=== PATIENT | female | born 1985 | race Caucasian/White ===

== ENCOUNTER 2021-02-10 00:59 | Inpatient (IN) | payer OTHER ==
[~2021-02-10] VITALS: Ht 165.1 cm; Wt 76.7 kg
--- NOTE | 2021-02-10 04:06 | NUR ---
02/10/21 0406 Marcy Ortiz 0259 PT ARRIVED IN PACU NON RESPONSIVE TO NOXIOUS STIMULI WITH OPA IN PLACE. 0319 PT REACTIVE. OPA REMOVED. 0330 ATTEMPTED FUNDAL MASSAGE AND PT SWINGING FISTS AT RN'S. CALLED FOR SECURITY TO HELP. FUNDAL MASSAGE DONE BY [facility] RN WITH ONE RN HOLDING EACH ARM AND SECURITY AT BEDSIDE. PT SCREAMING AND KICKING DURING MASSAGE. 0337 FENTANYL 50MCG GIVEN IVP FOR ABD PAIN. 0342 PT CLINCHING MUSCLES AND BEARING DOWN. EXPLAINED THIS MAKES ABD PAIN WORSE. PT YELLING "I DON'T CARE, IT HURTS." FENTANYL 50MCG GIVEN IVP. 0345 FBC RN AT BEDSIDE DOING FUNDAL MASSAGE. ONE RN AT EACH ARM. PT YELLING AND BEARING DOWN DURING MASSAGE. FBC RN EXPLAINED TO PT ABOUT RELAXING ABD MUSCLES, WITH NO SUCCESS. REPORT GIVEN TO RN.
--- NOTE | 2021-02-11 07:41 | PR ---
[facility] [address] [facility] [place], [place] [address] Signed PP Progress Notes Datetime Report Generated by CPN: 02/11/2021 07:40 SUBJECTIVE: [id number] Pain: Within Normal Limits Nausea/Vomiting: Denies Flatus: Yes Vital Signs: [id number] Vital Signs: Reviewed; Within Normal Limits Cardiovascular: Normal Respiratory: Abnormal Abdomen/Uterus: Normal Lochia: Normal Vulva/Perineum: Not Done Breasts: Not Done CVA Tenderness: Not Done Extremities: Normal Incision: Normal Progress: Not Applicable Exam Comments: Generally very flat affect Lungs with decreased breath sounds in the bases Abdomen with active BS. Fundus firm, NT @ U-3 H/H 7.3/22.7, WBC 11.2, plat 209k IMPRESSION/PLAN/PROCEDURES: [id number] Other Impression: decreased breath sounds, anemia Other Plans: ambulate, shower, spirometer Other Procedures: IV iron Progress Notes: Very slow moving. Emphasized importance of ambulation and shower. Spirometer also discussed and emphasized. Discussed IV iron to improve her anemia and she is amenable. Signing Physician: Jacinda Barfield MD Copies: ~ *Electronically Signed* 02/11/21739 JACINDA BARFIELD MD PATIENT NAME: KERI DAMON PROGRESS NOTE DATE OF : 87 PHYSICIAN: JACINDA BARFIELD MD RPT #: [id number] REPORT IS CONFIDENTIAL AND NOT TO BE RELEASED WITHOUT AUTHORIZATION
--- NOTE | 2021-02-12 11:24 | PATH ---
[facility] [address] [place], [place] [address] Signed SPECIMEN(S): A PLACENTA SPECIMEN SOURCE: A. PLACENTA CLINICAL HISTORY: Abruption. No care. FINAL PATHOLOGIC DIAGNOSIS: Placenta: - Moore placenta, 548 grams, see comment. - Umbilical cord: Three-vessel umbilical cord with no histopathologic abnormality. - membranes: Pigmented macrophages. - Placental disc: Chorionic villi with mature villous morphology, multiple placental infarcts (approximately 1.1 cm in greatest dimension), focal decidual hemorrhage. COMMENT: The placental infarcts are located adjacent to the maternal surface and are favored/likely to be secondary to clinical history of placental abruption. The gestational age is unknown, therefore the appropriateness of placental weight to gestational age cannot be determined. NAL:cml:c2NR MICROSCOPIC EXAMINATION: Histologic sections of all submitted blocks are examined by light microscopy. These findings, together with the gross examination, support the pathologic diagnosis. GROSS DESCRIPTION: The specimen, labeled "GIANCARLO, placenta," is received in formalin and consists of a moore discoid placenta with the following parameters: Umbilical cord: Insertion eccentric-2.1 cm from the margin, measurement 19.2 x 1.2 cm; trivascular. Cord coiling index (per 10 cm): Two. Lesions: The cord has a slight green discoloration. Membranes: Insertion site: Marginal, green hue translucent, rupture site eccentric. Intact. Other: Not grossly identified. Chorionic Plate: Normal radiating vascular pattern, blue-purple and shiny. Lesions: Multiple, focal submembranous areas of de la garza-white discoloration from 0.8 up to 3.0 cm in greatest dimension and PATIENT NAME: KERI DAMON PATHOLOGY DATE OF : 87 REPORT #: [id number] PHYSICIAN: JELANI OVIEDO PCP: OTHER PCP REPORT IS CONFIDENTIAL AND NOT TO BE RELEASED WITHOUT AUTHORIZATION [facility] [address] [place], [place] [address] Signed comprising approximately 5% of the surface. Other: Not grossly identified. Maternal Surface: Normal cotyledons, intact. Lesions: Multiple de la garza-white areas of consolidation from less than 0.1 up to 1.3 cm in greatest dimension and comprising approximately 10% of the maternal surface. Measurement: 17.2 x 16.3 x 3.1 cm. Weight (trimmed): 548 g Cut Surface: Maroon and spongy. Lesions: Multiple, focal areas of de la garza-white consolidation that are associated with the chorionic plate and maternal surface discoloration. There is a consolidation area from 0.2-3.0 cm in greatest dimension. The majority of the areas of consolidation grossly appear to involve the maternal surface. Basal plate fibrin 0.1 cm in thickness. Other Findings: Not grossly identified Cassette Summary: (A1) membranes and umbilical cord (A2) central section of placenta (A3) eccentric section of placenta (A4) eccentric section of placenta. AI(under the direct supervision of a pathologist) The Gross Description was prepared using a voice recognition system. The report was reviewed for accuracy; however, sound-alike word errors, addition and/or deletions may occur. If there is any question about this report, please contact Client Services. PERFORMING LABORATORY: The technical component was performed by [facility], [address] [place] [id number] (Crutcher Helper: Sola Samuel MD; CLIA# [id number]). Professional interpretation was performed by [facility], [place] branch, [address] [place] [facility] [place] [address] (CLIA# [id number]). Diagnostician: Pearl Cooper MD Pathologist Electronically Signed 02/12/2021 Copies: ~ PATIENT NAME: KERI DAMON PATHOLOGY DATE OF : 87 REPORT #: [id number] PHYSICIAN: JELANI OVIEDO PCP: OTHER PCP REPORT IS CONFIDENTIAL AND NOT TO BE RELEASED WITHOUT AUTHORIZATION
--- NOTE | 2021-02-12 11:51 | PR ---
[facility] [address] [place], [place] [address] Signed PP Progress Notes Datetime Report Generated by CPN: 02/12/2021 11:51 SUBJECTIVE: [id number] Pain: Within Normal Limits Pain Comments: taking large amounts of oxycodone Nausea/Vomiting: Denies Nausea/Vomiting Comments: plans for rehab are still pending Flatus: Yes Vital Signs: [id number] Vital Signs: Reviewed; Within Normal Limits Cardiovascular: Normal Respiratory: Not Done Abdomen/Uterus: Abnormal Lochia: Normal Vulva/Perineum: Not Done Breasts: Not Done CVA Tenderness: Not Done Extremities: Normal Incision: Normal Progress: Not Applicable Exam Comments: Abdomen with active BS. Fundus firm, NT @ U-2. IMPRESSION/PLAN/PROCEDURES: [id number] Impression: Normal Progression Other Impression: Fentanyl addiction Plan: Continue Present Management Other Plans: ambulate, shower, spirometer Other Procedures: IV iron Progress Notes: Doing well postoperatively though still taking large amounts of oxycodone. She is wanting to go into rehab though plans are still being formulated. She would like to start a nicotine patch as well. Signing Physician: Jacinda Barfield MD Copies: ~ *Electronically Signed* 02/12/21 7894 JACINDA BARFIELD MD PATIENT NAME: KERI DAMON PROGRESS NOTE DATE OF : 87 PHYSICIAN: JACINDA BARFIELD MD RPT #: [id number] REPORT IS CONFIDENTIAL AND NOT TO BE RELEASED WITHOUT AUTHORIZATION
--- NOTE | 2021-02-14 09:13 | OR ---
[facility] [address] [place], [place] [address] Signed DATE OF OPERATION: 02/10/2021 SURGEON: Jacinda Barfield MD EDGE PLUGGER: Dr. Blanchard. PREOPERATIVE DIAGNOSIS: Term , active labor, previous section, no care, opiate abuse. POSTOPERATIVE DIAGNOSIS: Term , active labor, previous section, no care, opiate abuse, delivered. PROCEDURE: Repeat section with low segment transverse uterine incision. Lysis of adhesions. ANESTHESIA: General ET. ESTIMATED BLOOD LOSS: 800 mL. DRAINS: Clark catheter. INDICATIONS AND FINDINGS: The patient is a 35-year-old female, who has had no care but is approximate 38 weeks by an early ultrasound done at the care center. The patient has been using fentanyl as well as occasional Suboxone throughout her . She has undergone a prior section approximately 16 years ago. When she arrived in Labor and Delivery, she was in active labor, and was approximately 9 cm. Decision was made to proceed with repeat section. She was taken to the operating room where she was delivered of a little girl from the ROT position via lower segment transverse uterine incision with Apgars of 8 and 9 and a weight of 6 pounds 5 ounces. There was evidence of abruption at delivery. There was thick meconium at delivery as well. The uterus appeared normal as did the tubes and ovaries. The placenta had evidence of calcifications and small infarcts. She did have adhesions of the omentum to the anterior peritoneum as well. Electronically Signed By: JACINDA BARFIELD MD 02/14/21 0913 PATIENT NAME: KERI DAMON OPERATIVE REPORT DATE OF : 87 REPORT #: [id number] PHYSICIAN: JACINDA BARFIELD MD PCP: OTHER PCP REPORT IS CONFIDENTIAL AND NOT TO BE RELEASED WITHOUT AUTHORIZATION [facility] [address] [place], [place] [address] Signed DESCRIPTION OF PROCEDURE: The patient was prepped and draped in the supine position. A repeat Pfannenstiel skin incision was made and carried down through the fascia. The incision was extended laterally. The inferior flap did not require development as the prior incision was almost on the pubis. The superior fascial flaps were then developed. Peritoneum was opened bluntly and the incision extended. The Rafa retractor was then placed. The uterine incision was made at the upper aspect of the peritoneal reflection. There was clear fluid as well as thick meconium at delivery. The baby was delivered with the above findings and handed off to the pediatric staff in attendance. The placenta was removed manually and the uterus explored with a lap tape. The edges of the incision were identified. There was evidence of an extension on the patient's left side. This was controlled with a separate suture of 0 Monocryl. This extension was brought up to the angle to merge. Following this, a full-length suture was used to close the incision with a running locking stitch again using the 0 Monocryl. An imbricating stitch was then placed again of the 0 Monocryl. Following this, the abdomen was copiously irrigated and inspected. Bleeding points on the peritoneum were controlled with cautery. The retractor was then removed and the peritoneum identified. The filmy adhesions of the omentum were taken down using cautery as well as free ties of 2-0 chromic. Following this, the incision was re-evaluated and seen to be hemostatic but was kind of raw. Because of this, Julio was placed over this. The ACell patch was also laid to aid in healing. The peritoneum was then closed in a running suture of 3-0 Vicryl. The muscles were brought together with interrupted sutures of 0 Vicryl. Bleeding points were controlled with cautery. This layer was irrigated, inspected, and found to be hemostatic. ACell powder was sprinkled over the muscles to aid in healing. The fascia was then closed from each angle to the midline with a running suture of 0 Vicryl. The subcu space was irrigated and bleeding points controlled with cautery. Deep space was closed with a running suture of 3-0 Vicryl. The scar was then excised sharply. The skin was closed with a subcuticular suture of 4-0 Vicryl Rapide. This was followed by Mastisol and SteriStrips. All sponge and needle counts were correct. She tolerated the procedure well and was taken to the recovery room in good condition. Jacinda Barfield MD PJW/MODL /[id number] Electronically Signed By: JACINDA BARFIELD MD 02/14/21 0913 PATIENT NAME: KERI DAMON OPERATIVE REPORT DATE OF : 87 REPORT #: [id number] PHYSICIAN: JACINDA BARFIELD MD PCP: OTHER PCP REPORT IS CONFIDENTIAL AND NOT TO BE RELEASED WITHOUT AUTHORIZATION [facility] [address] [place] [address] [place], [place] [address] Signed CC: Dr. MONDRAGON Blanchard Copies: ~ Electronically Signed By: JACINDA BARFIELD MD 02/14/21912 PATIENT NAME: KERI DAMON TAMMY OPERATIVE REPORT DATE OF : 87 REPORT #: [id number] PHYSICIAN: JACINDA BARFIELD MD PCP: OTHER PCP REPORT IS CONFIDENTIAL AND NOT TO BE RELEASED WITHOUT AUTHORIZATION
== END 2021-02-12 15:35 | disposition home or self-care (01) | DRG 787 ==
LOC: FBCO 00:59 → FBC 01:42
PROVIDERS: ADMIT Obstetrics & Gynecology; ATTEND Obstetrics & Gynecology
PROC: 10D00Z1 Extraction of Products of Conception, Low, Open Approach (ICD-10-PCS; principal; 2021-02-10 01:45)
DX: O34.211 Maternal care for low transverse scar from previous cesarean delivery (principal); O99.324 Drug use complicating childbirth; Z3A.38 38 weeks gestation of pregnancy; Z37.0 Single live birth; O77.0 Labor and delivery complicated by meconium in amniotic fluid; F11.10 Opioid abuse, uncomplicated; O64.0XX0 Obstructed labor due to incomplete rotation of fetal head, not applicable or unspecified
CPT/HCPCS: 01961; 80053; 82803; 85027; 86900; 88307; A9270; J0330; J0690; J1170; J1885; J2250; J2370; J2405; J2590; J2704; J2765; J2916; J3010; J7040; J7121; U0003

== ENCOUNTER → 2023-02-26 | Emergency (ER) | payer OTHER ==
[~2023-02-26] VITALS: Ht 165.1 cm; Wt 75.8 kg
--- OUTSIDE RECORDS SUMMARY | ~2023-02-26 | XMS | Continuity of Care Document ---
Demographics + + + | Address | [address] | | | [place] [address] | + + + | Preferred Language | Unknown | + + + | Marital Status | | + + + | Adventism Affiliation | Unknown | + + + | Race | White | + + + | Ethnic Group | Not or | + + + Author + + + | Author | [facility] | + + + | Organization | [facility] | + + + | Address | [address] | | | [place] [address] | + + + | Phone | | + + + Care Team Providers + + + + | Care Mortgage Accounting Clerk Name | Role | Phone | + + + + Unavailable | Unavailable | + + + + Unavailable | Unavailable | + + + + Allergies and Intolerances + + + + + + | date | description | facility | reaction | severity | + + + + + + | (no date) | No Known | [facility] | (no reaction) | (no severity) | | | Allergies | | | | + + + + + + Encounters No information. Functional Status No information. Immunizations + + + + | date | description | facility | + + + + | 2022-12-26 00:00 | MMR | [facility] | + + + + | 2023-02-23 00:00 | MMR | [facility] | + + + + Medications No information. Problems + + + + | date | description | facility | + + + + | 2022-12-25 22:58 | Essential (primary) | [facility] | | | hypertension | | + + + + | 2022-12-25 22:58 | OTHER CHEST PAIN | [facility] | + + + + | 2022-12-25 22:58 | CHEST PAIN, UNSPECIFIED | [facility] | + + + + | 2022-12-26 00:00 | Non-cardiac chest pain | [facility] | + + + + | 2023-02-22 00:00 | Chest pain | [facility] | + + + + | 2023-02-22 23:24 | Essential (primary) | [facility] | | | hypertension | | + + + + | 2023-02-22 23:24 | OTHER CHEST PAIN | [facility] | + + + + | 2023-02-22 23:24 | CHEST PAIN, UNSPECIFIED | [facility] | + + + + Procedures No information. Results/Labs +--------+--------+ +---------+--------+---------+ | test | date | facility | value | unit | notes | +--------+--------+ +---------+--------+---------+ + + | Result panel 1 | + + + + + +--------+ + + | | 2022-12-25 | [facility] | 12.2 | (missing) | (missing) | | (unavailable [facility] | | + + + +--------+ + + + + | Result panel 2 | + + + + + +--------+ + + | | 2022-12-25 | [facility] | 5.17 | (missing) | (missing) | | (unavailable | [facility] | | | + + + +--------+ + + + + | Result panel 3 | + + + + + +--------+ + + | | 2022-12-25 | [facility] | 13.7 | (missing) | (missing) | | (unavailable | [facility] | | | + + + +--------+ + + + + | Result panel 4 | + + + + + +--------+ + + | | 2022-12-25 | [facility] | 43.2 | (missing) | (missing) | | (unavailable | ::07 [facility] | | | + + + +--------+ + + + + | Result panel 5 | + + + + + +--------+ + + | | 2022-12-25 | [facility] | 83.5 | (missing) | (missing) | | (unavailable | [facility] | | | + + + +--------+ + + + + | Result panel 6 | + + + + + +--------+ + + | | 2022-12-25 | [facility] | 26.5 | (missing) | (missing) | | (unavailable | [facility] | | | + + + +--------+ + + + + | Result panel 7 | + + + + + +--------+ + + | | 2022-12-25 | [facility] | 31.7 | (missing) | (missing) | | (unavailable | [facility] | | | + + + +--------+ + + + + | Result panel 8 | + + + + + +--------+ + + | | 2022-12-25 | [facility] | 14.4 | (missing) | (missing) | | (unavailable | [facility] | | | + + + +--------+ + + + + | Result panel 9 | + + + + + +-------+ + + | | 2022-12-25 | [facility] | 328 | (missing) | (missing) | | (unavailable | [facility] | | | + + + +-------+ + + + + | Result panel 10 | + + + + + +--------+ + + | | 2022-12-25 | [facility] | 58.4 | (missing) | (missing) | | (unavailable | [facility] | | | + + + +--------+ + + + + | Result panel 11 | + + + + + +--------+ + + | | 2022-12-25 | [facility] | 34.0 | (missing) | (missing) | | (unavailable | [facility] | | | + + + +--------+ + + + + | Result panel 12 | + + + + + +-------+ + + | | 2022-12-25 | [facility] | 6.5 | (missing) | (missing) | | (unavailable | [facility] | | | + + + +-------+ + + + + | Result panel 13 | + + + + + +-------+ + + | | 2022-12-25 | [facility] | 0.1 | (missing) | (missing) | | (unavailable | [facility] | | | + + + +-------+ + + + + | Result panel 14 | + + + + + +-------+ + + | | 2022-12-25 | [facility] | 1.0 | (missing) | (missing) | | (unavailable | [facility] | | | + + + +-------+ + + + + | Result panel 15 | + + + + + +--------+ + + | | 2022-12-25 | [facility] | 0.29 | (missing) | (missing) | | (unavailable | [facility] | | | + + + +--------+ + + + + | Result panel 16 | + + + + + +-------+---------+ + | | 2022-12-25 | [facility] | 113 | mg/dL | (missing) | | (unavailable | [facility]07 [facility] | | | + + + +-------+---------+ + + + | Result panel 17 | + + + + + +------+---------+ + | | 2022-12-25 | [facility] | 11 | mg/dL | (missing) | | (unavailable | [facility]07 [facility] | | | + + + +------+---------+ + + + | Result panel 18 | + + + + + +--------+---------+ + | | 2022-12-25 | [facility] | 0.91 | mg/dL | (missing) | | (unavailable | [facility] | | | + + + +--------+---------+ + + + | Result panel 19 | + + + + + +------+ + + | | 2022-12-25 | [facility] | 84 | (missing) | (missing) | | (unavailable | [facility] | | | + + + +------+ + + + + | Result panel 20 | + + + + + +---------+ + + | | 2022-12-25 | [facility] | 12.08 | (missing) | (missing) | | (unavailable | [facility] | | | + + + +---------+ + + + + | Result panel 21 | + + + + + +-------+ + + | | 2022-12-25 | [facility] | 140 | (missing) | (missing) | | (unavailable | [facility] | | | + + + +-------+ + + + + | Result panel 22 | + + + + + +-------+ + + | | 2022-12-25 | [facility] | 3.1 | (missing) | (missing) | | (unavailable | [facility] | | | + + + +-------+ + + + + | Result panel 23 | + + + + + +-------+ + + | | 2022-12-25 | [facility] | 104 | (missing) | (missing) | | (unavailable | [facility] | | | + + + +-------+ + + + + | Result panel 24 | + + + + + +------+ + + | | 2022-12-25 | [facility] | 27 | (missing) | (missing) | | (unavailable | [facility] | | | + + + +------+ + + + + | Result panel 25 | + + + + + +--------+ + + | | 2022-12-25 | [facility] | 12.1 | (missing) | (missing) | | (unavailable | [facility] | | + + + +--------+ + + + + | Result panel 26 | + + + + + +-------+---------+ + | | 2022-12-25 | [facility] | 8.9 | mg/dL | (missing) | | (unavailable | [facility] | | | + + + +-------+---------+ + + + | Result panel 27 | + + + + + +-------+---------+ + | | 2022-12-25 | [facility] | 2.1 | mg/dL | (missing) | | (unavailable | [facility] | | | + + + +-------+---------+ + + + | Result panel 28 | + + + + + +-------+ + + | | 2022-12-25 | [facility] | 7.3 | (missing) | (missing) | | (unavailable | [facility] | | | + + + +-------+ + + + + | Result panel 29 | + + + + + +-------+ + + | | 2022-12-25 | [facility] | 3.6 | (missing) | (missing) | | (unavailable | [facility] | | | + + + +-------+ + + + + | Result panel 30 | + + + + + +-------+ + + | | 2022-12-25 | [facility] | 3.7 | (missing) | (missing) | | (unavailable | [facility] | | | + + + +-------+ + + + + | Result panel 31 | + + + + + +--------+ + + | | 2022-12-25 | [facility] | 0.97 | (missing) | (missing) | | (unavailable | [facility] | | | + + + +--------+ + + + + | Result panel 32 | + + + + + +-------+ + + | | 2022-12-25 | [facility] | 0.3 | (missing) | (missing) | | (unavailable | [facility] | | | + + + +-------+ + + + + | Result panel 33 | + + + + + +------+ + + | | 2022-12-25 | [facility] | 13 | (missing) | (missing) | | (unavailable | [facility] | | | + + + +------+ + + + + | Result panel 34 | + + + + + +------+ + + | | 2022-12-25 | [facility] | 20 | (missing) | (missing) | | (unavailable | [facility] | | | + + + +------+ + + + + | Result panel 35 | + + + + + +-------+ + + | | 2022-12-25 | [facility] | 101 | (missing) | (missing) | | (unavailable | [facility] | | | + + + +-------+ + + + + | Result panel 36 | + + + + + +-------+ + + | | 2022-12-25 | [facility] | 4.0 | (missing) | (missing) | | (unavailable | [facility] | | | + + + +-------+ + + + + | Result panel 37 | + + + + + + + + + | | 2022-12-25 | [facility] | NEGATIVE | (missing) | (missing) | | (unavailable | [facility] | | | + + + + + + + + + | Result panel 38 | + + + + + + + + + | | 2022-12-25 | [facility] | YELLOW | (missing) | (missing) | | (unavailable | [facility] | | | + + + + + + + + + | Result panel 39 | + + + + + +---------+ + + | | 2022-12-25 | [facility] | CLEAR | (missing) | (missing) | | (unavailable | [facility] | | | + + + +---------+ + + + + | Result panel 40 | + + + + + + + + + | | 2022-12-25 | [facility] | NEGATIVE | (missing) | (missing) | | (unavailable | [facility] | | | + + + + + + + + + | Result panel 41 | + + + + + + + + + | | 2022-12-25 | [facility] | NEGATIVE | (missing) | (missing) | | (unavailable | [facility] | | | + + + + + + + + + | Result panel 42 | + + + + + + + + + | | 2022-12-25 | [facility] | NEGATIVE | (missing) | (missing) | | (unavailable | [facility] | | | + + + + + + + + + | Result panel 43 | + + + + + +---------+ + + | | 2022-12-25 | [facility] | 1.010 | (missing) | (missing) | | (unavailable | [facility] | | | + + + +---------+ + + + + | Result panel 44 | + + + + + + + + + | | 2022-12-25 | [facility] | NEGATIVE | (missing) | (missing) | | (unavailable | [facility] | | | + + + + + + + + + | Result panel 45 | + + + + + +-------+ + + | | 2022-12-25 | [facility] | 8.0 | (missing) | (missing) | | (unavailable | [facility] | | | + + + +-------+ + + + + | Result panel 46 | + + + + + + + + + | | 2022-12-25 | [facility] | NEGATIVE | (missing) | (missing) | | (unavailable | [facility] | | | + + + + + + + + + | Result panel 47 | + + + + + + + + + | | 2022-12-25 | [facility] | NORMAL | (missing) | (missing) | | (unavailable | [facility] | | | + + + + + + + + + | Result panel 48 | + + + + + + + + + | | 2022-12-25 | [facility] | NEGATIVE | (missing) | (missing) | | (unavailable | [facility] | | | + + + + + + + + + | Result panel 49 | + + + + + +---------+ + + | | 2022-12-25 | [facility] | TRACE | (missing) | (missing) | | (unavailable | [facility] | | | + + + +---------+ + + + + | Result panel 50 | + + + + + +-------+ + + | | 2022-12-25 | [facility] | 0-1 | (missing) | (missing) | | (unavailable | [facility] | | | + + + +-------+ + + + + | Result panel 51 | + + + + + +-------+ + + | | 2022-12-25 | [facility] | 2-3 | (missing) | (missing) | | (unavailable | [facility] | | | + + + +-------+ + + + + | Result panel 52 | + + + + + + + + + | | 2022-12-25 | [facility] | SQUAMOUS 1+ | (missing) | (missing) | | (unavailable | [facility] | | | + + + + + + + + + | Result panel 53 | + + + + + +------+ + + | | 2022-12-25 | [facility] | No | (missing) | (missing) | | (unavailable | [facility] | | | + + + +------+ + + + + | Result panel 54 | + + + + + +-------+ + + | | 2023-02-22 | [facility] | 6.8 | (missing) | (missing) | | (unavailable | [facility] | | | + + + +-------+ + + + + | Result panel 55 | + + + + + +--------+ + + | | 2023-02-22 | [facility] | 35.1 | (missing) | (missing) | | (unavailable | [facility] | | | + + + +--------+ + + + + | Result panel 56 | + + + + + +--------+ + + | | 2023-02-22 | [facility] | 50.0 | (missing) | (missing) | | (unavailable | [facility] | | | + + + +--------+ + + + + | Result panel 57 | + + + + + +-------+ + + | | 2023-02-22 | [facility] | 7.1 | (missing) | (missing) | | (unavailable | [facility] | | | + + + +-------+ + + + + | Result panel 58 | + + + + + +-------+ + + | | 2023-02-22 | [facility] | 7.0 | (missing) | (missing) | | (unavailable | [facility] | | | + + + +-------+ + + + + | Result panel 59 | + + + + + +-------+ + + | | 2023-02-22 | [facility] | 0.8 | (missing) | (missing) | | (unavailable | [facility] | | | + + + +-------+ + + + + | Result panel 60 | + + + + + +--------+ + + | | 2023-02-22 | [facility] | 0.27 | (missing) | (missing) | | (unavailable | [facility] | | | + + + +--------+ + + + + | Result panel 61 | + + + + + +-------+---------+ + | | 2023-02-22 | [facility] | 121 | mg/dL | (missing) | | (unavailable | [facility] | | | + + + +-------+---------+ + + + | Result panel 62 | + + + + + +------+---------+ + | | 2023-02-22 | [facility] | 13 | mg/dL | (missing) | | (unavailable | [facility] | | | + + + +------+---------+ + + + | Result panel 63 | + + + + + +--------+---------+ + | | 2023-02-22 | [facility] | 0.76 | mg/dL | (missing) | | (unavailable | [facility] | | | + + + +--------+---------+ + + + | Result panel 64 | + + + + + +-------+ + + | | 2023-02-22 | [facility] | 104 | (missing) | (missing) | | (unavailable | [facility] | | | + + + +-------+ + + + + | Result panel 65 | + + + + + +--------+ + + | | 2023-02-22 | [facility] | 4.00 | (missing) | (missing) | | (unavailable | [facility] | | | + + + +--------+ + + + + | Result panel 66 | + + + + + +---------+ + + | | 2023-02-22 | [facility] | 17.10 | (missing) | (missing) | | (unavailable | [facility] | | + + + +---------+ + + + + | Result panel 67 | + + + + + +-------+ + + | | 2023-02-22 | [facility] | 141 | (missing) | (missing) | | (unavailable | [facility] | | | + + + +-------+ + + + + | Result panel 68 | + + + + + +-------+ + + | | 2023-02-22 | [facility] | 3.9 | (missing) | (missing) | | (unavailable | [facility] | | | + + + +-------+ + + + + | Result panel 69 | + + + + + +-------+ + + | | 2023-02-22 | [facility] | 105 | (missing) | (missing) | | (unavailable | [facility] | | | + + + +-------+ + + + + | Result panel 70 | + + + + + +------+ + + | | 2023-02-22 | [facility] | 30 | (missing) | (missing) | | (unavailable | [facility] | | | + + + +------+ + + + + | Result panel 71 | + + + + + +-------+ + + | | 2023-02-22 | [facility] | 9.9 | (missing) | (missing) | | (unavailable | [facility] | | | + + + +-------+ + + + + | Result panel 72 | + + + + + +-------+---------+ + | | 2023-02-22 | [facility] | 8.5 | mg/dL | (missing) | | (unavailable | [facility] | | | + + + +-------+---------+ + + + | Result panel 73 | + + + + + +-------+---------+ + | | 2023-02-22 | [facility] | 2.2 | mg/dL | (missing) | | (unavailable | [facility] | | | + + + +-------+---------+ + + + | Result panel 74 | + + + + + +-------+ + + | | 2023-02-22 | [facility] | 6.6 | (missing) | (missing) | | (unavailable | [facility] | | | + + + +-------+ + + + + | Result panel 75 | + + + + + +-------+ + + | | 2023-02-22 | [facility] | 3.3 | (missing) | (missing) | | (unavailable | [facility] | | | + + + +-------+ + + + + | Result panel 76 | + + + + + +--------+ + + | | 2023-02-22 | [facility] | 11.0 | (missing) | (missing) | | (unavailable | [facility] | | | + + + +--------+ + + + + | Result panel 77 | + + + + + +-------+ + + | | 2023-02-22 | [facility] | 3.3 | (missing) | (missing) | | (unavailable | [facility] | | | + + + +-------+ + + + + | Result panel 78 | + + + + + +--------+ + + | | 2023-02-22 | [facility] | 1.00 | (missing) | (missing) | | (unavailable | [facility] | | | + + + +--------+ + + + + | Result panel 79 | + + + + + +-------+ + + | | 2023-02-22 | [facility] | 0.1 | (missing) | (missing) | | (unavailable | [facility] | | | + + + +-------+ + + + + | Result panel 80 | + + + + + +------+ + + | | 2023-02-22 | [facility] | 17 | (missing) | (missing) | | (unavailable | [facility] | | | + + + +------+ + + + + | Result panel 81 | + + + + + +------+ + + | | 2023-02-22 | [facility] | 22 | (missing) | (missing) | | (unavailable | [facility] | | | + + + +------+ + + + + | Result panel 82 | + + + + + +------+ + + | | 2023-02-22 | [facility] | 92 | (missing) | (missing) | | (unavailable | [facility] | | | + + + +------+ + + + + | Result panel 83 | + + + + + +-------+ + + | | 2023-02-22 | [facility] | 4.4 | (missing) | (missing) | | (unavailable | [facility] | | | + + + +-------+ + + + + | Result panel 84 | + + + + + +--------+ + + | | 2023-02-22 | [facility] | 34.0 | (missing) | (missing) | | (unavailable | [facility] | | | + + + +--------+ + + + + | Result panel 85 | + + + + + +--------+ + + | | 2023-02-22 | [facility] | 84.9 | (missing) | (missing) | | (unavailable | [facility] | | | + + + +--------+ + + + + | Result panel 86 | + + + + + +--------+ + + | | 2023-02-22 | [facility] | 27.4 | (missing) | (missing) | | (unavailable | [facility] | | | + + + +--------+ + + + + | Result panel 87 | + + + + + +--------+ + + | | 2023-02-22 | [facility] | 32.3 | (missing) | (missing) | | (unavailable | [facility] | | | + + + +--------+ + + + + | Result panel 88 | + + + + + +--------+ + + | | 2023-02-22 | [facility] | 13.7 | (missing) | (missing) | | (unavailable | [facility] | | | + + + +--------+ + + + + | Result panel 89 | + + + + + +-------+ + + | | 2023-02-22 | [facility] | 254 | (missing) | (missing) | | (unavailable | [facility] | | | + + + +-------+ + + Social History + + + + | date | description | facility | + + + + | 2022-12-26 00:00 | Unknown if ever smoked | [facility] | + + + + | 2023-02-23 00:00 | Unknown if ever smoked | [facility] | + + + + Vital Signs + + + +---------+ | date | measurement | value | units | + + + +---------+ | 2022-12-25 00:00 | BMI | 28.1 | kg/m2 | + + + +---------+ | 2022-12-25 00:00 | height_metric | 165.1 | cm | + + + +---------+ | 2022-12-25 00:00 | height_standard | 65 | in | + + + +---------+ | 2022-12-25 00:00 | weight_metric | 76.66 | kg | + + + +---------+ | 2022-12-25 00:00 | weight_standard | 169 | lb | + + + +---------+ | 2022-12-25 00:00 | weight_standard | 169.01 | lb | + + + +---------+ | 2022-12-26 00:00 | BP_diastolic | 91 | mmHg | + + + +---------+ | 2022-12-26 00:00 | BP_systolic | 134 | mmHg | + + + +---------+ | 2022-12-26 00:00 | heart_rate | 76 | /min | + + + +---------+ | 2022-12-26 00:00 | o2_saturation | 99 | % | + + + +---------+ | 2022-12-26 00:00 | respiration_rate | 16 | /min | + + + +---------+ | 2022-12-26 00:00 | temperature_metric | 36.78 | C | | | | | | + + + +---------+ | 2022-12-26 00:00 | | 98.2 | F | | | temperature_standar | | | | | d | | | + + + +---------+ | 2023-02-22 00:00 | BMI | 27.9 | kg/m2 | + + + +---------+ | 2023-02-22 00:00 | height_metric | 165.1 | cm | + + + +---------+ | 2023-02-22 00:00 | height_standard | 65 | in | + + + +---------+ | 2023-02-22 00:00 | weight_metric | 76 | kg | + + + +---------+ | 2023-02-22 00:00 | weight_standard | 167.55 | lb | + + + +---------+ | 2023-02-23 00:00 | BP_diastolic | 68 | mmHg | + + + +---------+ | 2023-02-23 00:00 | BP_systolic | 113 | mmHg | + + + +---------+ | 2023-02-23 00:00 | heart_rate | 70 | /min | + + + +---------+ | 2023-02-23 00:00 | o2_saturation | 95 | % | + + + +---------+ | 2023-02-23 00:00 | respiration_rate | 17 | /min | + + + +---------+ | 2023-02-23 00:00 | temperature_metric | 36.61 | C | | | | | | + + + +---------+ | 2023-02-23 00:00 | | 97.9 | F | | | temperature_standar | | | | | d | | | + + + +---------+"
--- OUTSIDE RECORDS SUMMARY | ~2023-02-26 | XMS | Continuity of Care Document ---
Demographics + + + | Address | [address] | | | [place] [address] | + + + | Preferred Language | Unknown | + + + | Marital Status | | + + + | Mandaeism Affiliation | Unknown | + + + | Race | White | + + + | Ethnic Group | Not or | + + + Author + + + | Author | [facility] | + + + | Organization | [facility] | + + + | Address | [address] | | | [place] [address] | + + + | Phone | | + + + Care Team Providers + + + + | Care Pickling Operator Name | Role | Phone | + [...] + | 2022-12-26 00:00 | MMR | [facility] | + + + + | 2023-02-23 00:00 | MMR | [facility] | + + + + Medications No [...] 2022-12-26 00:00 | Non-cardiac chest pain | [facility] | + + + + | 2023-02-22 00:00 | Chest pain | [facility] | + + + + | 2023-02-22 [...] 00:00 | Unknown if ever smoked | [facility] | + + + + | 2023-02-23 00:00 | Unknown if ever smoked | [facility] | + + + + Vital Signs [...]
[2023-02-26 19:55] VITALS: BP 120/84
--- OUTSIDE RECORDS SUMMARY | 2023-02-26 20:00 | XMS ---
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 ERaimundo VISIT COUNT (12 MO.) 3 [facility] TOTAL 3 NOTE: Visits indicate total known visits. ED/C VISIT TRACKING (12 MO.) 02/26/2023 19:54 [facility] TYPE: Emergency COMPLAINT: - CHEST PAIN 02/22/2023 23:24 [facility] TYPE: Emergency COMPLAINT: - CHEST PAIN DIAGNOSES: - Chest pain, unspecified - Essential (primary) hypertension - Other chest pain 12/25/2022 22:58 [facility] TYPE: Emergency COMPLAINT: - CP DIAGNOSES: - Chest pain, unspecified - Essential (primary) hypertension - Other chest pain INPATIENT VISIT TRACKING (12 MO.) No inpatient visits to display in this time frame [email or web address]
== END ==
LOC: ED 19:54
DX: R07.9 Chest pain, unspecified (principal); I10 Essential (primary) hypertension; I25.2 Old myocardial infarction; Z53.29 Procedure and treatment not carried out because of patient's decision for other reasons
CPT/HCPCS: 99284